=== PATIENT | female | born 1960 | race Caucasian/White ===

== ENCOUNTER → 2016-06-12 | Outpatient (CLI) | payer OTHER ==
[~2016-06-12] MED LIST: ASPI81TA28 PO; B-COCAP2 PO; HCTZ PO; HYDR25TA4 PO; LISI-725 PO; MELO15TA4 PO; METO25TA56 PO; SIMV20TA2 PO; [UNRECOGNIZED DRUG - OTHER] PO
--- NOTE | 2016-06-15 13:33 | MAMMOGRAPHY REPORT ---
BILATERAL DIGITAL SCREENING MAMMOGRAM TOMOSYNTHESIS WITH CAD: 06/12/2016 CLINICAL HISTORY: Routine screening. Patient has no complaints. TECHNIQUE: Breast tomosynthesis in addition to standard 2D mammography was performed. Current study was also evaluated with a Computer Aided Detection (CAD) system. COMPARISON: Comparison is made to exams dated: 06/11/2015 mammogram, 07/03/2013 mammogram, 06/30/2012 m ammogram, 06/30/2011 mammogram, 06/07/2009 mammogram - [facility], and 06/01/2008. BREAST COMPOSITION: The tissue of both breasts is almost entirely fatty. FINDINGS: No suspicious masses, calcifications, or areas of architectural distortion are noted in e ither breast. There has been no significant interval change compared to prior exams. Benign-appeari ng circumscribed mass in the left upper outer quadrant is stable. Asymmetry within the right latera l breast on the cc view appears similar to prior exams including the 2012 exam, and felt to represen t normal fibroglandular tissue. IMPRESSION: ACR BI-RADS CATEGORY 2: BENIGN There is no mammographic evidence of malignancy. A 1 year screening mammogram is recommended. The p atient will receive written notification of the results. Approximately 10% of breast cancers are not detected with mammography. A negative mammographic repor t should not delay biopsy if a clinically suggestive mass is present. Vicki De Guzman M.D. /:06/12/2016 15:23:20 Punching Machine Operator: Ada Reeder, [facility] letter sent: Normal /2 BI-RADS Code: ACR BI-RADS Category 2: Benign
== END | disposition home or self-care (01) ==
LOC: C.MAMM 14:58
PROVIDERS: ATTEND Internal Medicine
DX: Z12.31 Encounter for screening mammogram for malignant neoplasm of breast (principal)

== ENCOUNTER 2017-01-22 08:16 | Emergency (ER) | payer OTHER ==
[~2017-01-22] VITALS: Ht 157.5 cm; Wt 103.2 kg
[~2017-01-22 08:16] MED LIST changes: -ASPI81TA28 PO; -HYDR25TA4 PO; -MELO15TA4 PO; -METO25TA56 PO
[2017-01-22 08:20] VITALS: TEMP 36.5; Ht 157.5 cm; Wt 103.2 kg
[2017-01-22] MEDS ORDERED: SODIUM CHLORIDE 0.9% 1000ML 1,000 ML IV STA (08:54)
[2017-01-22 08:57] VITALS: O2SAT 98
--- NOTE | 2017-01-22 09:03 | EMERGENCY ROOM VISIT NOTE ---
History Report prepared by Any: Dorothea Green Under the Supervision of: Dr. Justin Yung M.D. First contact with patient: 08:43 Chief Complaint: HYPERTENSION Stated Complaint: BLOOD PRESSURE HIGH History of Present Illness The patient is a 56 year old female who presents to the Emergency Room with complaints of persistent hypertension that was found today prior to arrival. The patient states that she was at work sitting down and bending down and picking up tubes when she began to feel lightheaded and dizzy. She states that she summoned her boss and asked for someone to check her blood pressure. The patient states that she found her blood pressure to be 143/110 mmHg. She states that she consulted her PCP who instructed her to come to the emergency department for further evaluation and treatment. The patient states that over the past several weeks she has been intermittently experiencing high blood pressure. She states that her PCP has been adjusting her Lisinopril, Hydrochlorothiazide, and Metoprolol. The patient states that last Wednesday she experienced headaches. She states that she noticed she was pale. The patient denies any nausea. She reports a history of diabetes that is diet controlled. She reports a history of heart disease and stroke, noting that her mother passed at the age of 52 of a stroke. The patient denies any fever, chills, cough, congestion, or urinary symptoms. Source of History: patient Onset: prior to arrival Position: other Symptom Intensity: 143/110 Quality: other (hypertension) Timing: other (persistent) Associated Symptoms: + headache, No fevers, No chills, No cough, No nausea, No urinary symptoms Note: Associated Symptoms: dizzy, lightheaded Review of Systems See HPI for pertinent positives and negatives. A total of ten systems were reviewed and were otherwise negative. Past Medical & Surgical Medical Problems: (1) Diabetes (2) Hypertension Family History Heart disease Stroke Social History Smoking Status: Never Smoker Marital Status: Housing Status: lives with significant other Occupation Status: employed Current/Historical Medications Scheduled Aspirin (Aspirin Ec), 81 MG PO QAM Hydrochlorothiazide (Hctz), 25 MG PO QAM Lisinopril (Zestril), 30 MG PO DAILY Metoprolol Tartrate (Lopressor) (Lopressor), 25 MG PO QAM Simvastatin (Zocor), 20 MG PO QPM Scheduled PRN Meloxicam (Mobic), 15 MG PO DAILY PRN for Pain Allergies Coded Allergies: No Known Allergies (Unverified , 01/22/17) Physical Exam Vital Signs Date Time Temp Pulse Resp B/P (MAP) Pulse Ox O2 Delivery O2 Flow Rate FiO2 01/22/17 14:38 63 20 136/84 99 01/22/17 13:09 62 18 136/91 98 Room Air 01/22/17 12:40 60 01/22/17 11:13 59 20 126/79 97 Room Air 01/22/17 10:29 59 20 120/79 98 Room Air 01/22/17 09:17 62 18 122/71 98 Room Air 01/22/17 08:57 98 Room Air 01/22/17 08:48 62 01/22/17 08:20 36.5 64 18 153/84 98 Room Air Physical Exam GENERAL: Awake, alert, anxious-appearing, in no distress HENT: Normocephalic, atraumatic. Dry mucous membranes. EYES: Normal conjunctiva. Sclera non-icteric. NECK: Supple. No nuchal rigidity. FROM. No JVD. RESPIRATORY: Clear to auscultation. CARDIAC: Regular rate, normal rhythm. Extremities warm and well perfused. Pulses equal. ABDOMEN: Soft, non-distended. No tenderness to palpation. No rebound or guarding. No masses. RECTAL: Deferred. MUSCULOSKELETAL: Chest examination reveals no tenderness. The back is symmetrical on inspection without obvious abnormality. There is no CVA tenderness to palpation. No joint edema. LOWER EXTREMITIES: Calves are equal size bilaterally and non-tender. No edema. No discoloration. NEURO: Normal sensorium. No sensory or motor deficits noted. SKIN: No rash or jaundice noted. Medical Decision & Procedures ER Provider Diagnostic Interpretation: X-ray: Per my interpretation, radiologist review. CHEST ONE VIEW PORTABLE HISTORY: Atypical CHEST PAIN COMPARISON: Chest 11/21/2007. FINDINGS: The lungs are clear. Cardiac silhouette is normal in size. No pleural effusions. No pneumothorax. IMPRESSION: No acute process. Electronically signed by: Eric Padron M.D. 01/22/2017 9:20 AM Dictated Date/Time: 01/22/2017 9:19 AM Laboratory Results 01/22/17 09:18 Red Blood Count 4.79, Mean Corpuscular Volume 86.4, Mean Corpuscular Hemoglobin 28.6, Mean Corpuscular Hemoglobin Concent 33.1, Mean Platelet Volume 10.5, Neutrophils (%) (Auto) 49.1, Lymphocytes (%) (Auto) 34.0, Monocytes (%) (Auto) 10.9, Eosinophils (%) (Auto) 4.2, Basophils (%) (Auto) 1.0, Neutrophils # (Auto ) 3.89, Lymphocytes # (Auto) 2.69, Monocytes # (Auto) 0.86, Eosinophils # (Auto ) 0.33, Basophils # (Auto) 0.08 01/22/17 09:18 Test 01/22/17 09:18 01/22/17 12:15 White Blood Count 7.91 K/uL (4.8-10.8) Red Blood Count 4.79 M/uL (4.2-5.4) Hemoglobin 13.7 g/dL (12.0-16.0) Hematocrit 41.4 % (37-47) Mean Corpuscular Volume 86.4 fL (80-100) Mean Corpuscular Hemoglobin 28.6 pg (25-34) Mean Corpuscular Hemoglobin Concent 33.1 g/dl (32-36) Platelet Count 244 K/uL (130-400) Mean Platelet Volume 10.5 fL (7.4-10.4) Neutrophils (%) (Auto) 49.1 % Lymphocytes (%) (Auto) 34.0 % Monocytes (%) (Auto) 10.9 % Eosinophils (%) (Auto) 4.2 % Basophils (%) (Auto) 1.0 % Neutrophils # (Auto) 3.89 K/uL (1.4-6.5) Lymphocytes # (Auto) 2.69 K/uL (1.2-3.4) Monocytes # (Auto) 0.86 K/uL (0.11-0.59) Eosinophils # (Auto) 0.33 K/uL (0-0.5) Basophils # (Auto) 0.08 K/uL (0-0.2) RDW Standard Deviation 43.7 fL (36.4-46.3) RDW Coefficient of Variation 13.8 % (11.5-14.5) Immature Granulocyte % (Auto) 0.8 % Immature Granulocyte # (Auto) 0.06 K/uL (0.00-0.02) Anion Gap 7.0 mmol/L (3-11) Est Creatinine Clear Calc Drug Dose 83.3 ml/min Estimated GFR () 88.1 Estimated GFR (Non- 76.1 BUN/Creatinine Ratio 21.2 (10-20) Calcium Level 9.2 mg/dl (8.5-10.1) Troponin I < 0.015 ng/ml (0-0.045) Laboratory results reviewed by me Medications Administered Medications (Trade) Dose Ordered Sig/Piedad Route Start Time Stop Time Status Last Admin Dose Admin Sodium Chloride 1,000 ml @ 999 mls/hr Q1H1M STAT IV 01/22/17 08:54 01/22/17 09:54 DC 01/22/17 09:16 999 MLS/HR ECG Indication: other (hypertension) Rate (beats per minute): 59 Rhythm: sinus bradycardia Findings: no acute ischemic change, other (normal axis) Change: Repeat EKG: Normal Sinus Rhythm, 62 beats per minute, normal axis, no signs of acute ischemia. ED Course 0844: The patient was evaluated in room B9. A complete history and physical exam was performed. 0854: Ordered Sodium Chloride 1000 ml @ 999 mls/hr IV. 1411: I reevaluated the patient and she is resting comfortably. I discussed the exam findings with her and I discussed the treatment plan. She verbalized complete understanding and agreement. She is ready to go home. Medical Decision I reviewed the patient's past medical history, medications, and the nursing notes as described above. The patient's presentation and history were concerning for Hypertensive urgency , dehydration, electrolyte abnormality, ACS, pneumonia, anxiety. The patient is a 56 yo woman who presents to the ED with c/o dizziness and high blood pressure per HPI. ON arrival the patient is anxious appearing but in NAD. Patient appears clinically dry, which was c/w BUN/Cr > 20. Otherwise WBC wnl. EKG unremarkable and trop negative. CXR negative. Sx resolved after IVF suggesting likely mild dehydration causing sx. However, given the patient's vague report discomfort with episode repeat delta 4 hour EKG and trop done and were negative. Heart score 3, low risk. Unlikely ACS. Findings and plan for follow-up d/w patient. Patient agreeable and d/c'd per discharge instructions. Medication Reconcilliation Current Medication List: was personally reviewed by me Blood Pressure Screening Patient's blood pressure: Elevated blood pressure Blood pressure disposition: Referred to PCP Impression Primary Impression: Dizziness Additional Impression: Dehydration Scribe Attestation The scribe's documentation has been prepared under my direction and personally reviewed by me in its entirety. I confirm that the note above accurately reflects all work, treatment, procedures, and medical decision making performed by me. Departure Information Dispostion Home / Self-Care Referrals Alfred Baker MD (PCP) Forms HOME CARE DOCUMENTATION FORM, IMPORTANT VISIT INFORMATION, WORK / SCHOOL INSTRUCTIONS Patient Instructions Dizziness Fainting Poss Causes, ED Dehydration, My [facility] Additional Instructions Please follow up with your primary care physician in the next 1-3 days for re- evaluation and to discuss your blood pressure medications. You likely were mildly dehydrated. Otherwise, your exam, EKG, chest xray, and lab results did not show signs of an emergent condition at this time. Return to the emergency department for worsening symptoms as described in the accompanying instructions. Work Instructions Return To Work: 1 day Problem Qualifiers
[2017-01-22] MEDS ORDERED: METO25TA56 PO (09:20)
[2017-01-22] MEDS ORDERED: MELO15TA4 PO (09:20)
[2017-01-22] MEDS ORDERED: HYDR25TA4 PO (09:20)
[2017-01-22] MEDS ORDERED: ASPI81TA28 PO (09:21)
--- NOTE | 2017-01-22 09:21 | DIAGNOSTIC IMAGING REPORT ---
CHEST ONE VIEW PORTABLE HISTORY: Atypical CHEST PAIN COMPARISON: Chest 11/21/2007. FINDINGS: The lungs are clear. Cardiac silhouette is normal in size. No pleural effusions. No pneumothorax. IMPRESSION: No acute process. Electronically signed by: Eric Pardon M.D. 01/22/2017 9:20 AM Dictated Date/Time: 01/22/2017 9:19 AM
[2017-01-22 09:41] LABS: BASO ABS # 0.08 K/uL (0-0.2); COMPLETE YES; EOS % 4.2 %; HEMATOCRIT 41.4 % (37-47); IG% 0.8 %; LYMPH ABS # 2.69 K/uL (1.2-3.4); MEAN CELL VOLUME 86.4 fL (80-100); MEAN CORPUSCULAR HEMOGLOBIN 28.6 pg (25-34); MEAN CORPUSCULAR HGB CONC 33.1 g/dl (32-36); MEAN PLATELET VOLUME 10.5 fL (7.4-10.4); MONO % 10.9 %; NEUT % 49.1 %; PLATELET COUNT 244 K/uL (130-400); RED BLOOD COUNT 4.79 M/uL (4.2-5.4); WHITE BLOOD COUNT 7.91 K/uL (4.8-10.8)
[2017-01-22 10:04] LABS: BLOOD UREA NITROGEN 18 mg/dl (7-18); BUN/CREATININE RATIO 21.2 (10-20); CALCIUM 9.2 mg/dl (8.5-10.1); CARBON DIOXIDE 25 mmol/L (21-32); CHLORIDE 103 mmol/L (98-107); CREATININE 0.86 mg/dl (0.60-1.20); GLUCOSE 148 mg/dl (70-99); POTASSIUM 3.9 mmol/L (3.5-5.1); SODIUM 135 mmol/L (136-145)
[2017-01-22 14:38] VITALS: BP 136/84; PULSE 63; O2SAT 99
== END 2017-01-22 14:41 | disposition home or self-care (01) ==
LOC: C.EDB 08:17
DX: R42 Dizziness and giddiness (principal); E86.0 Dehydration; R00.1 Bradycardia, unspecified; I10 Essential (primary) hypertension; E11.9 Type 2 diabetes mellitus without complications; Z79.82 Long term (current) use of aspirin; Z79.899 Other long term (current) drug therapy; Z82.49 Family history of ischemic heart disease and other diseases of the circulatory system; Z82.0 Family history of epilepsy and other diseases of the nervous system

== ENCOUNTER → 2017-06-14 | Outpatient (CLI) | payer OTHER ==
[~2017-06-14] MED LIST changes: +ASPI81TA28 PO; -B-COCAP2 PO; -HCTZ PO; +HYDR25TA4 PO; +MELO15TA4 PO; +METO25TA56 PO; -[UNRECOGNIZED DRUG - OTHER] PO
--- NOTE | 2017-06-15 13:29 | MAMMOGRAPHY REPORT ---
BILATERAL DIGITAL SCREENING MAMMOGRAM TOMOSYNTHESIS WITH CAD: 06/14/2017 CLINICAL HISTORY: Routine screening. TECHNIQUE: Breast tomosynthesis in addition to standard 2D mammography was performed. Current study was also evaluated with a Computer Aided Detection (CAD) system. COMPARISON: Comparison is made to exams dated: 06/12/2016 mammogram, 06/11/2015 mammogram, 07/03/2013 dontae mogram, 06/30/2012 mammogram, 06/30/2011 mammogram, and 06/07/2009 mammogram - [facility]. BREAST COMPOSITION: The tissue of both breasts is almost entirely fatty. FINDINGS: A circumscribed benign-appearing mass in the left upper outer quadrant is decreased in size comparing to the 06/01/2008 mammogram, confirming benignity. No new suspicious mass, architectural distortion or cluster of microcalcifications is seen. IMPRESSION: ACR BI-RADS CATEGORY 1: NEGATIVE There is no mammographic evidence of malignancy. A 1 year screening mammogram is recommended. The pa tient will receive written notification of the results. Approximately 10% of breast cancers are not detected with mammography. A negative mammographic report should not delay biopsy if a clinically suggestive mass is present. Shadia Campbell M.D. ay/:06/14/2017 16:12:18 Clay Worker: Hazel FLORES(Liliam)(Evelyn), [facility] letter sent: Normal 1/2 BI-RADS Code: ACR BI-RADS Category 1: Negative
== END | disposition home or self-care (01) ==
LOC: C.MAMM 14:16
PROVIDERS: ATTEND Internal Medicine
DX: Z12.31 Encounter for screening mammogram for malignant neoplasm of breast (principal)

== ENCOUNTER 2017-08-13 10:16 | Emergency (ER) | payer OTHER ==
[~2017-08-13] VITALS: Ht 157.5 cm; Wt 103.0 kg
[~2017-08-13 10:16] MED LIST changes: +MELO-84 PO; -MELO15TA4 PO
[2017-08-13 10:18] VITALS: TEMP 36.4; Ht 157.5 cm; Wt 103.0 kg
[2017-08-13] MEDS ORDERED: ASPIRIN 81 MG CHEW PO STA (10:42)
[2017-08-13 11:48] LABS: BLOOD UREA NITROGEN 22 mg/dl (7-18); CARBON DIOXIDE 26 mmol/L (21-32); CREATININE 0.96 mg/dl (0.60-1.20); GLUCOSE 175 mg/dl (70-99); POTASSIUM 3.9 mmol/L (3.5-5.1); SODIUM 137 mmol/L (136-145)
[2017-08-13 11:49] LABS: PTT PATIENT 20.8 SECONDS (21.0-31.0)
[2017-08-13] MEDS ORDERED: OPTIRAY 320 IV PRN (12:00)
[2017-08-13 12:11] LABS: HEMATOCRIT 41.8 % (37-47); HEMOGLOBIN 14.2 g/dL (12.0-16.0); MEAN CELL VOLUME 84.3 fL (80-100); MEAN CORPUSCULAR HEMOGLOBIN 28.6 pg (25-34); PLATELET COUNT 274 K/uL (130-400); RED CELL DISTRIBUTION WIDTH CV 14.3 % (11.5-14.5); RED CELL DISTRIBUTION WIDTH SD 44.3 fL (36.4-46.3); WHITE BLOOD COUNT 9.62 K/uL (4.8-10.8)
[2017-08-13 12:14] LABS: BASO % 0.6 %; BASO ABS # 0.06 K/uL (0-0.2); EOS % 4.3 %; EOS ABS # 0.41 K/uL (0-0.5); IG# 0.07 K/uL (0.00-0.02); MONO % 7.2 %; MONO ABS # 0.69 K/uL (0.11-0.59); NEUT % 60.2 %; NEUT ABS # 5.79 K/uL (1.4-6.5)
--- NOTE | 2017-08-13 13:06 | DIAGNOSTIC IMAGING REPORT ---
(CHEST FOR PE) ANGIO WITH CLINICAL HISTORY: 57 years-old Female presenting with shortness of breath, chest pain, clinical concern for pulmonary annulus. TECHNIQUE: Multidetector CT angiography of the chest was performed after administration of intravenous contrast. 3-D volumetric and/or maximum intensity projection (MIP) images were subsequently reconstructed for review. IV contrast: 89 mL of Optiray 320. A dose lowering technique was used consistent with the principles of ALARA (as low as reasonably achievable). COMPARISON: Chest CT from 11/21/2007. CT DOSE (mGy.cm): The estimated cumulative dose is 714.19 mGy.cm. FINDINGS: Air Valve Mechanic topogram: Unremarkable. Pulmonary vasculature: The study is suboptimal for the assessment of the pulmonary vascular tree secondary to respiratory motion artifact. Allowing for limited image quality, no central filling defect to suggest pulmonary embolus. Main pulmonary artery is not enlarged. No flattening of the interventricular septum. No intracardiac filling defect. No reflux of contrast into the hepatic veins. Remaining chest: On soft tissue windows, normal thyroid and thoracic inlet. No axillary, supraclavicular, hilar, or mediastinal lymphadenopathy. Normal aorta. Normal heart size. No pericardial or pleural effusion. Hepatic steatosis. On lung windows, motion artifact from respiration limits evaluation of the lung parenchyma. Trace emphysematous changes noted in the left upper lobe. Allowing for this, minimal dependent changes likely atelectasis. No other focal infiltrate or nodule. Central airways patent. On bone windows, normal osseous structures. IMPRESSION: 1. Allowing for suboptimal image quality, no evidence of pulmonary embolus. No acute intrathoracic pathology. 2. Hepatic steatosis. Electronically signed by: Michael Lim M.D. 08/13/2017 1:04 PM Dictated Date/Time: 08/13/2017 1:00 PM
[2017-08-13 14:23] VITALS: O2SAT 97
[2017-08-13 15:43] VITALS: BP 141/104; PULSE 65
--- NOTE | 2017-08-13 17:44 | EMERGENCY ROOM VISIT NOTE ---
History Report prepared by Any: Jose Torres Under the Supervision of: Dr. Bob Mills M.D. First contact with patient: 10:34 Chief Complaint: SHORTNESS OF BREATH Stated Complaint: SHORTNESS OF BREATH Nursing Triage Summary: Chest pain and shortness of breath x1 week. Has not seen PCP. Diaphoretic today. Cp described as sharp History of Present Illness The patient is a 57 year old female who presents to the Emergency Room with complaints of intermittent central chest pain beginning one week ago. She also complains of diaphoresis and fatigue. She describes her chest pain as " sometimes sharp, sometimes dull". The patient called her and her PCP today, and was told that she sounded short of breath. She states that she does not feel short of breath. She notes that she recently started working out her upper body and thinks that might be causing her chest pain.. The patient denies any pain radiation. She denies cough, nausea, vomiting, diarrhea, or leg pain. Nothing worsens her pain. The patient denies recent travel, prolonged immobilization, surgery, trauma, or hormone supplements. She has a history of ( diet managed) diabetes. She has not required additional pillows while sleeping recently. The patient stopped her Lipitor recently. Source of History: patient Onset: A week ago Position: chest (central) Quality: sharp Timing: intermittent Modifying Factors (Worsening): other (none) Associated Symptoms: + diaphoresis, + fatigue, No cough, No SOB Review of Systems See HPI for pertinent positives and negatives. A total of ten systems were reviewed and were otherwise negative. Past Medical & Surgical Medical Problems: (1) Diabetes (2) Hypertension Family History Heart disease Stroke Social History Smoking Status: Never Smoker Marital Status: Housing Status: lives with significant other Occupation Status: employed Current/Historical Medications Scheduled Aspirin (Aspirin Ec), 81 MG PO QAM Hydrochlorothiazide (Hctz), 25 MG PO QAM Lisinopril (Zestril), 30 MG PO DAILY Metoprolol Tartrate (Lopressor) (Lopressor), 25 MG PO QAM Simvastatin (Zocor), 20 MG PO QPM Allergies Coded Allergies: No Known Allergies (Unverified , 08/13/17) Physical Exam Vital Signs Date Time Temp Pulse Resp B/P (MAP) Pulse Ox O2 Delivery O2 Flow Rate FiO2 08/13/17 15:43 65 20 141/104 08/13/17 14:29 67 08/13/17 14:23 62 17 128/88 97 Room Air 08/13/17 12:19 Room Air 08/13/17 12:19 Room Air 08/13/17 12:15 55 17 167/79 97 Room Air 08/13/17 10:18 99 Room Air 08/13/17 10:18 36.4 66 20 144/91 97 Room Air Physical Exam Physical Exam GENERAL: She is oriented to person, place, and time. She appears well- developed and well-nourished. She does not appear distressed. ____ HENT: Exam performed. Head: Normocephalic and atraumatic. Right Ear: External ear normal. No mastoid tenderness. Left Ear: External ear normal. No mastoid tenderness. Mouth/Throat: The oropharynx is clear and moist. No trismus in the jaw. No dental abscesses or uvula swelling. No oropharyngeal exudate or tonsillar abscesses. ____ EYES: Conjunctivae and EOM are normal. Pupils are equal, round, and reactive to light. Right eye exhibits no discharge. Left eye exhibits no discharge. No scleral icterus. ____ NECK: Normal range of motion. Neck supple. No JVD present. No spinous process tenderness present. No carotid bruit present. No rigidity. No tracheal deviation and normal range of motion present. No Brudzinski's sign and no Kernig 's sign noted. ____ CV: Normal rate, regular rhythm, normal heart sounds and intact distal pulses. There is no peripheral edema. Palpable radial pulses bue. ____ PULM/CHEST: Effort normal and breath sounds normal. No respiratory distress. No stridor. She has no wheezes. She has no rales. Chest Wall: Pain reproducing chief complaint on palpation of anterior right and left chest. ____ ABD: The abdomen is soft. Bowel sounds are normal. She has no distension. No mass is present. There is no tenderness. There is no rebound, no guarding, no Taylor's sign and no tenderness at McBurney's point. Rovsig negative MUSC/SKEL: Normal range of motion. There is no peripheral edema, tenderness or deformity. LYMPH: No cervical adenopathy. ____ NEURO: She is alert and oriented to person, place, and time. She has normal strength. No cranial nerve deficit or sensory deficit. Coordination and gait normal. GCS eye subscore is 4. GCS verbal subscore is 5. GCS motor subscore is 6. Cerebellar tests wnl. ____ SKIN: Skin is warm and dry. She is not diaphoretic. ____ PSYCH: She has a normal mood and affect. Her behavior is normal. Judgment and thought content normal. ____ Medical Decision & Procedures ER Provider Diagnostic Interpretation: Radiology results as stated below per my review and radiologist interpretation: (CHEST FOR PE) ANGIO WITH FINDINGS: Patient Account Specialist topogram: Unremarkable. Pulmonary vasculature: The study is suboptimal for the assessment of the pulmonary vascular tree secondary to respiratory motion artifact. Allowing for limited image quality, no central filling defect to suggest pulmonary embolus. Main pulmonary artery is not enlarged. No flattening of the interventricular septum. No intracardiac filling defect. No reflux of contrast into the hepatic veins. Remaining chest: On soft tissue windows, normal thyroid and thoracic inlet. No axillary, supraclavicular, hilar, or mediastinal lymphadenopathy. Normal aorta. Normal heart size. No pericardial or pleural effusion. Hepatic steatosis. On lung windows, motion artifact from respiration limits evaluation of the lung parenchyma. Trace emphysematous changes noted in the left upper lobe. Allowing for this, minimal dependent changes likely atelectasis. No other focal infiltrate or nodule. Central airways patent. On bone windows, normal osseous structures. IMPRESSION: 1. Allowing for suboptimal image quality, no evidence of pulmonary embolus. No acute intrathoracic pathology. 2. Hepatic steatosis. Electronically signed by: Michael Lim M.D. 08/13/2017 1:04 PM Laboratory Results 08/13/17 11:20 Red Blood Count 4.96, Mean Corpuscular Volume 84.3, Mean Corpuscular Hemoglobin 28.6, Mean Corpuscular Hemoglobin Concent 34.0, Mean Platelet Volume 11.0, Neutrophils (%) (Auto) 60.2, Lymphocytes (%) (Auto) 27.0, Monocytes (%) (Auto) 7.2, Eosinophils (%) (Auto) 4.3, Basophils (%) (Auto) 0.6, Neutrophils # (Auto) 5.79, Lymphocytes # (Auto) 2.60, Monocytes # (Auto) 0.69, Eosinophils # (Auto) 0.41, Basophils # (Auto) 0.06 08/13/17 11:20 Test 08/13/17 11:20 08/13/17 14:14 White Blood Count 9.62 K/uL (4.8-10.8) Red Blood Count 4.96 M/uL (4.2-5.4) Hemoglobin 14.2 g/dL (12.0-16.0) Hematocrit 41.8 % (37-47) Mean Corpuscular Volume 84.3 fL (80-100) Mean Corpuscular Hemoglobin 28.6 pg (25-34) Mean Corpuscular Hemoglobin Concent 34.0 g/dl (32-36) Platelet Count 274 K/uL (130-400) Mean Platelet Volume 11.0 fL (7.4-10.4) Neutrophils (%) (Auto) 60.2 % Lymphocytes (%) (Auto) 27.0 % Monocytes (%) (Auto) 7.2 % Eosinophils (%) (Auto) 4.3 % Basophils (%) (Auto) 0.6 % Neutrophils # (Auto) 5.79 K/uL (1.4-6.5) Lymphocytes # (Auto) 2.60 K/uL (1.2-3.4) Monocytes # (Auto) 0.69 K/uL (0.11-0.59) Eosinophils # (Auto) 0.41 K/uL (0-0.5) Basophils # (Auto) 0.06 K/uL (0-0.2) RDW Standard Deviation 44.3 fL (36.4-46.3) RDW Coefficient of Variation 14.3 % (11.5-14.5) Immature Granulocyte % (Auto) 0.7 % Immature Granulocyte # (Auto) 0.07 K/uL (0.00-0.02) Prothrombin Time 10.0 SECONDS (9.0-12.0) Prothromb Time International Ratio 1.0 (0.9-1.1) Activated Partial Thromboplast Time 20.8 SECONDS (21.0-31.0) Partial Thromboplastin Ratio 0.8 D-Dimer 1900 ug/L FEU (0-500) Anion Gap 6.0 mmol/L (3-11) Est Creatinine Clear Calc Drug Dose 73.6 ml/min Estimated GFR () 76.6 Estimated GFR (Non- 66.1 BUN/Creatinine Ratio 22.5 (10-20) Calcium Level 9.0 mg/dl (8.5-10.1) Troponin I < 0.015 ng/ml (0-0.045) Laboratory results reviewed by me Medications Administered Medications (Trade) Dose Ordered Sig/Piedad Route Start Time Stop Time Status Last Admin Dose Admin Aspirin (Aspirin Chew) 324 mg NOW STAT PO 08/13/17 10:42 08/13/17 10:44 DC 08/13/17 12:14 324 MG ECG Per My Interpretation Indication: SOB/dyspnea Rate (beats per minute): 61 Rhythm: sinus rhythm Findings: other (No ST elevation or depression. QT, QRS and NM intervals are within normal limits. Baseline artifact.) ED Course 1040: The patient was evaluated in room B3B. A complete history and physical exam was performed. 1042: Ordered Aspirin Chew 324 mg PO. 1500: Labs including 2 sets of troponins negative. CTA negative for acute PE. Patient's chest pain is most likely musculoskeletal given that she is working out recently and her pain is reproducible bilaterally on palpation of the anterior chest. DISCHARGE - Plan of care discussed with patient and questions answered. The patient was given both verbal and printed discharge instructions. The patient verbalized understanding and ability to comply. The patient is to seek outpatient follow up as noted in the discharge instructions. The patient verbalized understanding and ability to comply. The patient is discharged in stable condition. The patient was instructed to return for worsening symptoms. Medical Decision Labs including 2 sets of troponins negative. CTA negative for acute PE. Patient's chest pain is most likely musculoskeletal given that she is working out recently and her pain is reproducible bilaterally on palpation of the anterior chest. DISCHARGE - Plan of care discussed with patient and questions answered. The patient was given both verbal and printed discharge instructions. The patient verbalized understanding and ability to comply. The patient is to seek outpatient follow up as noted in the discharge instructions. The patient verbalized understanding and ability to comply. The patient is discharged in stable condition. The patient was instructed to return for worsening symptoms. Medication Reconcilliation Current Medication List: was personally reviewed by me Blood Pressure Screening Patient's blood pressure: Elevated blood pressure Blood pressure disposition: Referred to PCP Impression Primary Impression: Chest pain Scribe Attestation The scribe's documentation has been prepared under my direction and personally reviewed by me in its entirety. I confirm that the note above accurately reflects all work, treatment, procedures, and medical decision making performed by me. The chart was completed utilizing [employer] Speech voice recognition software. Grammatical errors, random word insertions, pronoun errors, and incomplete sentences are an occasional consequence of this system due to software limitations, ambient noise, and hardware issues. Any formal questions or concerns about the content, text, or information contained within the body of this dictation should be directly addressed to the physician for clarification. Departure Information Dispostion Home / Self-Care Referrals Alfred Baker MD (PCP) Forms HOME CARE DOCUMENTATION FORM, IMPORTANT VISIT INFORMATION Patient Instructions Chest Pain - [facility], My [facility] Health Problem Qualifiers Primary Impression: Chest pain Chest pain type: unspecified Qualified Codes: R07.9 - Chest pain, unspecified
== END 2017-08-13 15:44 | disposition home or self-care (01) ==
LOC: C.EDB 10:18
DX: R07.9 Chest pain, unspecified (principal); E11.9 Type 2 diabetes mellitus without complications; I10 Essential (primary) hypertension; Z82.3 Family history of stroke; Z82.49 Family history of ischemic heart disease and other diseases of the circulatory system; Z79.82 Long term (current) use of aspirin